=== PATIENT | male | born 1955 | race Two or more races ===

== ENCOUNTER 2024-09-05 03:15 | Emergency (ER) | payer OTHER ==
[~2024-09-05] VITALS: Ht 180.3 cm; Wt 104.5 kg
--- NOTE | 2024-09-05 04:33 | ED.PDOC ---
History of Present Illness HPI Comments 68-year-old male came to ER via EMS for generalized weakness. Per EMS, patient has history of hypertension, has been feeling weak past few days. Was seen at [facility] 2 days ago, diagnosed with left ear infection, and was sent home with antibiotics. Patient still noted to be very weak, fatigued and febrile. Patient brought into the ER for further evaluation management. A temperature on scene was 103 F, tachycardic at the 110, blood sugar 134. Chief Complaint: General Weakness Time Seen by MD: 04:33 Reviewed Notes: Utility Engineer Notes Allergies: Coded Allergies: NO KNOWN ALLERGIES (Unverified , 09/05/24) Information Source: Patient, Emergency Med Personnel Mode of Arrival: EMS Severity: Moderate Timing: Days Duration: Intermittent Prehospital treatment: Accucheck Past Medical History PAST MEDICAL HISTORY: HTN Surgical History: Denies all surgeries Family History Family History: Reviewed,noncontributory to illness Social History Smoker: Non-Smoker Alcohol: Denies ETOH Use Drugs: Denies Drug Use Lives In: Home Constitutional: reports: fatigue, fever, malaise, weakness; denies: chills, diaphoresis, sweats, others EENTM: denies: blurred vision, double vision, ear bleeding, ear discharge, ear drainage, ear pain, ear ringing, eye pain, eye redness, hearing loss, mouth pain, mouth swelling, nasal discharge, nose bleeding, nose congestion, nose pain, photophobia, tearing, throat pain, throat swelling, voice changes, others Respiratory: denies: cough, hemoptysis, orthopnea, SOB at rest, shortness of breath, SOB with excertion, stridor, wheezing, others Cardiovascular: denies: chest pain, dizzy spells, diaphoresis, Dyspnea on exertion, edema, irregular heart beat, left arm pain, lightheadedness, palpitations, PND, syncope, others Gastrointestinal: denies: abdomen distended, abdominal pain, blood streaked bowels, constipated, diarrhea, dysphagia, difficulty swallowing, hematemesis, melena, nausea, poor appetite, poor fluid intake, rectal bleeding, rectal pain, vomiting, others Genitourinary: denies: burning, dysuria, flank pain, frequency, hematuria, incontinence, penile discharge, penile sore, pain, testicle pain, testicle swelling, urgency, others Neurological: denies: dizziness, fainting, headache, left sided numbness, left sided weakness, numbness, paresthesia, pre-existing deficit, right sided numbness, right sided weakness, seizure, speech problems, tingling, tremors, weakness, others Musculoskeletal: denies: back pain, gout, joint pain, joint swelling, muscle pain, muscle stiffness, neck pain, others Integumetry: denies: bruises, change in color, change in hair/nails, dryness, laceration, lesions, lumps, rash, wounds, others Allergic/Immunocompromised: denies: Difficulty Healing, Frequent Infections, Hives, Itching, others Hematologic/Lymphatic: denies: anemia, blood clots, easy bleeding, easy bruising, swollen glands, others Endocrine: denies: excessive hunger, excessive sweating, excessive thirst, excessive urination, flushing, intolerance to cold, intolerance to heat, unexplained weight gain, unexplained weight loss, others Psychiatric: denies: anxiety, bipolar disorder, depression, hopeless, panic disorder, schizophrenia, sleepless, suicidal, others Physical Exam General Appearance: Moderate Distress, Normal HEENT: Normal ENT Inspection, Pharynx Normal, TMs Normal Neck: Full Range of Motion, Non-Tender, Normal, Normal Inspection Respiratory: Chest Non-Tender, Lungs Clear, No Accessory Muscle Use, No Respiratory Distress, Normal Breath Sounds Cardiovascular: No Edema, No JVD, No Murmur, No Gallop, Normal Peripheral Pulses, Tachycardia Breast Exam: Deferred Gastrointestinal: No Organomegaly, Non Tender, No Pulsatile Mass, Normal Bowel Sounds, Soft Genitalia: Deferred Pelvic: Deferred Rectal: Deferred Extremities: No calf tenderness, Normal capillary refill, Normal inspection, Normal range of motion, Non-tender, No pedal edema Musculoskeletal : Apperance: Normal Neurologic: Alert, train brakeman II-XII nml as Tested, No Motor Deficits, Normal Affect, Normal Mood, No Sensory Deficits Cerebellar Function: NOT DONE Reflexes: NOT DONE Skin: Dry, Normal Color, Warm Peripheral Pulses: 3+ Radial (R), 3+ Radial (L) Lymphatic: No Adenopathy Was a procedure done? Was a procedure done?: No Differential Dx Considerations may include: Anemia, electrolyte imbalance, otitis media, viral syndrome, weakness, pneumonia X-Ray, Labs, Meds, VS Vital Signs Date Time Temp Pulse Resp B/P (MAP) Pulse Ox O2 Delivery O2 Flow Rate FiO2 09/05/24 06:08 103.0 09/05/24 04:39 106 09/05/24 03:52 103.0 106 25 145/74 (97) 93 103.0 09/05/24 03:20 103.0 110 14 129/63 (85) 94 103.0 Lab Test 09/05/24 05:55 09/05/24 04:30 Range/Units Troponin I High Sensitivity Pending 44 </=54 ng/L White Blood Count 5.7 4.4-10.8 10^3/uL Red Blood Count 5.42 4.5-5.90 10^6/uL Hemoglobin 16.1 13.5-17.5 g/dL Hematocrit 46.8 41.0-53.0 % Mean Corpuscular Volume 86.3 80.0-100.0 fL Mean Corpuscular Hemoglobin 29.7 28.0-32.0 pg Mean Corpuscular Hemoglobin Concent 34.5 32.0-36.0 g/dL Red Cell Distribution Width 14.8 H 11.8-14.3 % Platelet Count 105 L 140-450 10^3/uL Mean Platelet Volume 8.2 6.9-10.8 fL Neutrophils (%) (Auto) 85.9 H 37.0-80.0 % Lymphocytes (%) (Auto) 2.7 L 10.0-50.0 % Monocytes (%) (Auto) 3.7 0.0-12.0 % Eosinophils (%) (Auto) 6.6 0.0-7.0 % Basophils (%) (Auto) 1.1 0.0-2.0 % Neutrophils # (Auto) 4.9 1.6-8.6 10 ^3/uL Lymphocytes # (Auto) 0.2 L 0.4-5.4 10 ^3/uL Monocytes # (Auto) 0.2 0-1.3 10 ^3/uL Eosinophils # (Auto) 0.4 0-0.8 10 ^3/uL Basophils # (Auto) 0.1 0-0.2 10 ^3/uL Nucleated Red Blood Cells 0.3 % Sodium Level 132 L 136-145 mmol/L Potassium Level 3.6 3.5-5.1 mmol/L Chloride Level 97 L 98-107 mmol/L Carbon Dioxide Level 23 20-31 mmol/L Anion Gap 12 5-15 Blood Urea Nitrogen 15 9-23 mg/dL Creatinine 1.50 H 0.700-1.30 mg/dL Glomerular Filtration Rate Calc 50 >90 mL/min BUN/Creatinine Ratio 10.0 10.0-20.0 Serum Glucose 107 H 74-106 mg/dL Lactic Acid Level 2.2 *H 0.4-2.0 mmol/L Calcium Level 8.5 L 8.7-10.4 mg/dL Total Bilirubin 0.6 0.2-1.0 mg/dL Aspartate Amino Transferase (AST) 78 H 13-40 U/L Alanine Aminotransferase (ALT) 45 H 7-40 U/L Alkaline Phosphatase 38 L 46-116 U/L B-Type Natriuretic Peptide 40.06 0-100 pg/mL Total Protein 7.5 5.7-8.2 g/dL Albumin 4.2 3.2-4.8 g/dL Current Medications Medications (Trade) Dose Ordered Sig/Cristopher Route Start Time Stop Time Status Last Admin Sodium Chloride 1,000 ml @ 1,000 mls/hr Q1H ONCE IV 09/05/24 04:00 09/05/24 04:59 DC 09/05/24 04:38 Vancomycin HCl 200 ml @ 200 mls/hr ONCE ONCE IV 09/05/24 04:00 09/05/24 04:59 DC 09/05/24 04:38 Acetaminophen (Tylenol Tablet) 650 mg ONCE ONCE PO 09/05/24 05:30 09/05/24 05:31 DC 09/05/24 06:08 Patient alert. Came in for generalized weakness. Vitals stable. Answering questions. Liver enzymes are elevated. Lactic acid elevated. Establish intravenous access. Was given fluids. Was given vancomycin. WBC within normal limits. Platelets are slightly low. Kidney function slightly elevated. Tachycardia. Explained to the patient. Continue to monitor. Time of 1ST Reevaluation: 04:28 Reevaluation 1ST: Unchanged Patient Education/Counseling: Diagnosis, Treatment Family Education/Counseling: No Family Present Departure 1 Departure Time of Disposition: 06:10 Impression: Primary Impression: Sepsis, unspecified organism Qualified Codes: A41.9 - Sepsis, unspecified organism Additional Impression: Generalized weakness Disposition: ADMITTED INPATIENT Admit to: Med Surg Condition: Guarded Critical Care Note Critical Care Time?: No Stability Stability form required: No Heart Score Heart Score: Heart Score Response (Comments) Value History Slightly Suspicious 0 EKG Normal 0 Age >65 2 Risk Factors >3 or Hx ASHD 2 Troponin Normal limit 0 Total 4 I personally scribed for CHRISTINE LUNSFORD MD ([email or web address]) on 09/05/24 at 04:33. Electronically submitted by John Rand ([email or web address]). CHRISTINE LUNSFORD MD Sep 05, 2024 04:33 SALAZAR ANTHONY MD Sep 05, 2024 06:14
[2024-09-05] MEDS: SODIUM CHLORIDE 0.9% 1,000 ML IV ONE (04:38)
[2024-09-05] MEDS: VANCOMYCIN 1GM/200ML PM 200 ML IV ONE (04:38)
[2024-09-05 04:53] LABS: Basophils # (auto) 0.1 10 ^3/uL (0-0.2); Basophils % (auto) 1.1 % (0.0-2.0); Eosinophils # (auto) 0.4 10 ^3/uL (0-0.8); Eosinophils % (auto) 6.6 % (0.0-7.0); Hematocrit 46.8 % (41.0-53.0); Hemoglobin 16.1 g/dL (13.5-17.5); Lymphocytes # (auto) 0.2 10 ^3/uL (0.4-5.4); Lymphocytes % (auto) 2.7 % (10.0-50.0); Mean Corpuscular Hemoglobin 29.7 pg (28.0-32.0); Mean Corpuscular Hgb Conc. 34.5 g/dL (32.0-36.0); Mean Corpuscular Volume 86.3 fL (80.0-100.0); Monocytes # (auto) 0.2 10 ^3/uL (0-1.3); Monocytes % (auto) 3.7 % (0.0-12.0); Neutrophils # (auto) 4.9 10 ^3/uL (1.6-8.6); Neutrophils % (auto) 85.9 % (37.0-80.0); Nucleated Red Blood Cells % 0.3 %; Platelet Count (auto) 105 10^3/uL (140-450); Red Blood Cells 5.42 10^6/uL (4.5-5.90); Red Cell Distribution Width 14.8 % (11.8-14.3); White Blood Cell 5.7 10^3/uL (4.4-10.8)
[2024-09-05 05:00] VITALS: PULSE 110; RESP 24; O2SAT 98
[2024-09-05 05:02] LABS: Albumin 4.2 g/dL (3.2-4.8); Anion Gap 12 (5-15); Bilirubin, Total 0.6 mg/dL (0.2-1.0); Blood Urea Nitrogen 15 mg/dL (9-23); Carbon Dioxide 23 mmol/L (20-31); Potassium 3.6 mmol/L (3.5-5.1); Total Protein 7.5 g/dL (5.7-8.2)
[2024-09-05 05:03] LABS: Alanine Aminotransferase 45 U/L (7-40); Alkaline Phosphatase 38 U/L (46-116); Aspartate Aminotransferase 78 U/L (13-40); Calcium 8.5 mg/dL (8.7-10.4); Chloride 97 mmol/L (98-107); Glucose 107 mg/dL (74-106); Lactic Acid w/Reflex 2.2 mmol/L (0.4-2.0); Sodium 132 mmol/L (136-145)
[2024-09-05] MEDS: ACETAMINOPHEN 325 MG TAB PO ONE ×3 (06:08→15:01)
[2024-09-05] MEDS: CEFEPIME 2GM/50ML NS 50 ML IV ONE (06:10)
--- NOTE | 2024-09-05 06:13 | DVH ---
CHEST RADIOGRAPH Indication: fever Technique: Single frontal view of the chest was obtained COMPARISON: None FINDINGS: Lines and Tubes: None Lungs: Clear Pleura: No effusion. No pneumothorax. Cardiomediastinal contours: Unremarkable Bones: Unremarkable IMPRESSION: 1. No acute disease.
[2024-09-05 07:58] VITALS: PULSE 101; RESP 24; O2SAT 93
[2024-09-05 10:52] LABS: Urine Bacteria None Seen /hpf (None Seen)
[2024-09-05 10:59] LABS: Urine Blood 1+ /uL (Negative); Urine Clarity Clear (Clear); Urine Color Yellow (Yellow); Urine Protein, UAD 1+ (Negative); Urine Specific Gravity 1.024 (1.001-1.035); Urine Squamous Epithelial Cell None Seen /hpf (<5); Urine Urobilinogen Normal (Negative); Urine WBC 3 /HPF (0-3)
[2024-09-05 14:50] VITALS: BP 117/57; PULSE 111; RESP 25; O2SAT 93
[2024-09-05 15:01] VITALS: TEMP 103.4
--- NOTE | 2024-09-06 14:00 | ECG ---
[facility] Test Date: 2024-09-05 Test Time: 03:31:07 Pat Name: TOMMY EUGENE Department: ED Room: Gender: M Career Development Engineer: avery : 1955 Requested By: CHRISTINE LUNSFORD Order Number: [id number] Reading MD: Collin Villanueva Measurements Intervals [place] Rate: 103 P: 77 NM: 155 QRS: 228 QRSD: 106 T: 57 QT: 352 QTc: 461 Interpretive Statements Sinus tachycardia Atrial premature complexes Consider right ventricular hypertrophy Electronically Signed On 09-08-2024 12:54:30 PDT by Collin Villanueva Please click the below link to view image of tracing.
== END 2024-09-05 15:20 | disposition short-term general hospital (02) ==
LOC: EDBD 03:15 → ER 03:15
DX: A41.9 Sepsis, unspecified organism (principal); I10 Essential (primary) hypertension
CPT/HCPCS: 36415; 71045; 80053; 81001; 82947; 83605; 83880; 84484; 85025; 87040; 93005; 96365; 96366; 96367; 99285; J0692; J3370